=== PATIENT | female | born 1960 | race Caucasian/White ===

== ENCOUNTER 2020-03-14 14:31 | Outpatient (CLI) | payer OTHER, SELFPAY ==
--- NOTE | ~2020-03-14 | MM_ITS ---
EXAMINATION: MM screening torres BI w rhianna HISTORY: Screening TECHNIQUE: Craniocaudal and mediolateral oblique 3-D tomosynthesis images were obtained and synthetic 2-D images were generated. CAD analysis was submitted and interpreted. COMPARISON: Comparison to multiple prior studies sequentially, with oldest reviewed study dated 06/09. BREAST PARENCHYMAL COMPOSITION: There are scattered areas of fibroglandular density. FINDINGS: There is no evidence of suspicious mass, calcification, or architectural distortion to sugg est malignancy in either breast. There has been no suspicious interval change. IMPRESSION: 1. No mammographic evidence of malignancy. 2. Recommend routine screening mammography in one year. BI-RADS Category 1: Negative Reviewed, dictated and finalized at location A.
== END 2020-03-14 14:32 | disposition home or self-care (01) ==
LOC: ANHIMG 14:38
PROVIDERS: PCP Obstetrics & Gynecology; Visit Provider Obstetrics & Gynecology
DX: Z12.31 Encounter for screening mammogram for malignant neoplasm of breast (principal)
CPT/HCPCS: 77063; 77067

== ENCOUNTER 2022-05-17 14:04 | Outpatient (CLI) | payer OTHER, SELFPAY ==
--- NOTE | ~2022-05-17 | MM_ITS ---
EXAMINATION: MM screening torres BI w rhianna HISTORY: Screening TECHNIQUE: Craniocaudal and mediolateral oblique 3-D tomosynthesis images were obtained and synthetic 2-D images were generated. CAD analysis was submitted and interpreted. COMPARISON: 03/14/2020 BREAST PARENCHYMAL COMPOSITION: Breast composed of scattered areas of fibroglandular density FINDINGS: There is no evidence of suspicious mass, calcification, or architectural distortion to sugg est malignancy in either breast. There has been no suspicious interval change. IMPRESSION: 1. No mammographic evidence of malignancy. 2. Recommend routine screening mammography in one year. BI-RADS Category 1: Negative Reviewed, dictated and finalized at location A.
== END 2022-05-17 14:05 | disposition home or self-care (01) ==
LOC: ANHIMG 14:10
DX: Z12.31 Encounter for screening mammogram for malignant neoplasm of breast (principal)
CPT/HCPCS: 77063; 77067

== ENCOUNTER 2023-05-20 14:10 | Outpatient (CLI) | payer OTHER, SELFPAY ==
--- NOTE | ~2023-05-20 | MM_ITS ---
EXAMINATION: MM screening torres BI w rhianna HISTORY: Screening mammogram TECHNIQUE: Craniocaudal and mediolateral oblique 3-D tomosynthesis images were obtained and synthetic 2-D images were generated. CAD analysis was submitted and interpreted. COMPARISON: 05/17/2022, 03/14/2020 bilateral screening mammogram examinations BREAST PARENCHYMAL COMPOSITION: There are scattered areas of fibroglandular density. FINDINGS: There is no evidence of suspicious mass, calcification, or architectural distortion to sugg est malignancy in either breast. There has been no suspicious interval change. IMPRESSION: 1. No mammographic evidence of malignancy. 2. Recommend routine screening mammography in one year. BI-RADS Category 1: Negative Reviewed, dictated and finalized at location A.
== END 2023-05-20 14:11 | disposition home or self-care (01) ==
LOC: ANHIMG 14:13
DX: Z12.31 Encounter for screening mammogram for malignant neoplasm of breast (principal)
CPT/HCPCS: 77063; 77067

== ENCOUNTER 2023-09-05 13:58 | Outpatient (CLI) | payer OTHER, SELFPAY ==
--- NOTE | ~2023-09-05 | US_ITS ---
EXAMINATION: US art doppler w press LE DATE: 09/05/2023 15:34 INDICATION: Claudication. Peripheral arterial disease. TECHNIQUE: Segmental pressures and plethysmographic and Doppler waveforms of the brachial and lower e xtremity arteries were obtained. COMPARISON: None. FINDINGS: Right and left brachial artery pressures of 111 mm Hg and 105 mm Hg, respectively, are concordant (no rmal difference <= 30 mmHg). The right high-thigh pressure index is 1.25 (normal > 1.2). The right ankle-brachial index (JANUSZ) is 1 .23 (normal >= 0.9-1.0). The right great toe-brachial index (TBI) is 1.10 (normal >= 0.65). The right lower extremity segmental pressure gradients are normal (normal gradients <= 20-30 mmHg between erich cent levels on the same leg or the same levels on the two legs). Arterial Doppler waveforms are at le ast triphasic in common femoral artery, biphasic from superficial femoral artery to posterior tibial artery, triphasic in dorsalis pedis. The left high-thigh pressure index is 1.50. The left JANUSZ is 1.30. The left TBI is 0.92. The left lowe r extremity segmental pressure gradients are normal. Arterial Doppler waveforms triphasic in common f emoral artery and superficial femoral artery and biphasic in popliteal artery and at the ankle. IMPRESSION: 1. No significant arterial occlusive disease. Reviewed, dictated and finalized at location A. GER OPERATIONS
== END 2023-09-05 13:59 | disposition home or self-care (01) ==
LOC: ANHIMG 14:03
DX: I70.213 Atherosclerosis of native arteries of extremities with intermittent claudication, bilateral legs (principal)
CPT/HCPCS: 93923

== ENCOUNTER 2025-01-04 07:44 | Outpatient (CLI) | payer OTHER, MEDICARE, SELFPAY ==
--- NOTE | ~2025-01-04 | MM_ITS ---
EXAMINATION: MM screening torres BI w rhianna HISTORY: Screening TECHNIQUE: Craniocaudal and mediolateral oblique 3-D tomosynthesis images were obtained and synthetic 2-D images were generated. CAD analysis was submitted and interpreted. COMPARISON: Comparison to multiple prior studies sequentially, with oldest reviewed study dated 02/2020. BREAST PARENCHYMAL COMPOSITION: Not dense: There are scattered areas of fibroglandular density. FINDINGS: There is no evidence of suspicious mass, calcification, or architectural distortion to sugg est malignancy in either breast. There has been no suspicious interval change. IMPRESSION: 1. No mammographic evidence of malignancy. 2. Recommend routine screening mammography in one year. BI-RADS Category 1: Negative Reviewed, dictated and finalized at location A.
--- OUTSIDE RECORDS SUMMARY | 2025-01-04 07:48 | XMS_ITS | Clinical Summary ---
Author Organization [facility] Address [address] [place] [address] Care Team Providers Care Installation Helper Name Role Phone Unavailable Primary Care Provider Unavailabl e Source Comments [facility],non-owned Affiliates and Associated Physician Practices is amultiple site organization consisting of ambulatory clinics and [place]in [place] and [place]. This disclosure is being madepursuant to the Care Everywhere program and may not contain all information available regarding this patient. 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 Gender Identity Not on file Sexual Orientation Not on file Plan of Treatment Health Maintenance Due Date Last Done Comments BONE DENSITY TESTING 1959 COLOGUARD (AGES 45-75) - COL ON CA SCREENING 1959 COLON MONITORING 1959 COLONOSCOPY - COLON CA SCREENING 1959 CT COLONOGRAPHY - COLON CA SCREENING 1959 Colorectal Cancer Screening 1959 FIT - COLON CA SCREENING 1959 FLEX SIG - COLON CA SCREENING 1959 LIPID TESTING 1959 MAMMOGRAM 1959 HIV SCREENING 1974 HEPATITIS C SCREENING 05/10/1977 DTAP/TDAP/TD VACCINES (1 - Tdap) 1978 PNEUMOCOCCAL VACCINE 50+ (1 of 1 - PCV) 2009 ZOSTER VACCINE (1 of 2) 2009 COVID-19 VACCINE (1 - 2023-2 5 season) 2024 DEPRESSION SCREENING 08/08/2024 INFLUENZA VACCINE (Season Ended) 2025 Respiratory Syncytial Virus (RSV) Vaccine Pt: or over 60 yrs (1 - 1-dose 75+ series) 2034 HEPATITIS B VACCINE Aged Out No longe r eligible based on patient's age to complete this topic HIB VACCINE Aged Out No longer eligi ble based on patient's age to complete this topic HPV VACCINE Aged Out No longer eligi ble based on patient's age to complete this topic MENINGOCOCCAL (Group B) VACC INE SHARED DECISION-MAKING Aged Out No longer eligibl e based on patient's age to complete this topic MENINGOCOCCAL GROUPS A/C/Y/W VACCINE Aged Out No longer eligible b ased on patient's age to complete this topic Insurance
--- OUTSIDE RECORDS SUMMARY | 2025-01-04 07:48 | XMS_ITS | CONTINUITY OF CARE DOCUMENT ---
Author Name tarun mcneil Address Unknown Organization [facility] Address [address] [place] [address] Phone [phone] Care Team Providers Care Site Lead Name Role Phone Ramón SORIANO, Damian Unavailable ADELINA PRIVATE HOUSEHOLD WORKER, SAMINA Unavailable ADELINA PRIVATE HOUSEHOLD WORKER, SAMINA Unavailable PROBLEMS Condition Status Date Provider Notes Cardiology examination active Damian Melgar MD Diabetes, Type 2 active Damian Melgar MD Hyperlipidemia active Damian Melgar MD Hypertension active Damian Melgar MD Abnormal electrocardiogram active Damian kern MD Tobacco abuse active Damian Melgar MD Abnormal stress nuclear scan active Damian stuart MD ENCOUNTERS Date Type Provider Location Encounter Diag nosis - In-person encounter Office Visit Damian Melgar MD [facility] Abnormal stress nuclear scan - In-person encounter Office Visit Damian Melgar MD [facility] Cardiology examinationDiabetes, Type 2HyperlipidemiaHypertensionAbn ormal electrocardiogramTobacco abuse VITAL SIGNS Date Observation Value Provider Body Mass Index (Ratio) 33.29 kg/m2 Yaya Melgar MD blood pressure, diastolic 68 mm[Hg] St lino Govea blood pressure, systolic 107 mm[Hg] Sta aide Govea pulse rate 71 /min Rosa Elena Govea oxygen saturation, oximetry 96 % Rosa Elena Govea respiratory rate E&M 16 /min Rosa Elena navass weight E&M 212.6 [lb_av] Rosa Elena Govea height E&M 67 [in_i] Rosa Elena Govea Body Mass Index (Ratio) 32.57 kg/m2 Yaya Melgar MD blood pressure, diastolic 68 mm[Hg] Michelle nkLoggabbi blood pressure, systolic 103 mm[Hg] Roxi Chirinosoggabbi blood pressure, cuff size regular Seema kulwinder Velasquez blood pressure, diastolic 68 mm[Hg] Seema Velasquez blood pressure, systolic 103 mm[Hg] Bautista kirby Velasquez oxygen saturation, oximetry 96 % Parvin Velasquez respiratory rate E&M 18 /min Parvin Velasquez pulse rate 72 /min Parvin Velasquez weight E&M 208 [lb_av] Parvindamion Velasquez height E&M 67 [in_i] Parvin Velasquez ALLERGIES No Known Drug Allergies HISTORY OF MEDICATION USE Medication Status Instructions Dates Provider Indications Com ments furosemide 20 mg tablet active Take 1 tablet by mouth once a day Malini Garcia lisinopril-hydroc hlorothiazide 20-12.5 mg tablet active Take 1 tablet by mouth once a day Malini Garcia metformin 500 mg tablet active Take 1 tablet by mouth twice a day Malini Garcia rosuvastatin 20 mg tablet active Take 1 tablet by mouth once a day Malini Radha CoQ-10 100 mg capsule active Malini Radha Allergy 25 mg tablet active Malini Gradwoaer biotin unspecified unspecified active Malini Gradwoaer SOCIAL HISTORY Date Observation Value Provider social history E&M Marital Statu s: C hildren: 1 O ccupation: Office work Smoking History: P atient currently smokes every day. Damian Melgar MD social history reviewed E&M revi ewed - no changes required Damian Melgar MD smoking history, tot al pack/day 1 Rosa Elena Jeferson cigarette use yes Rosa Elena Jeferson smoking status Current every day smoker S bharathi Jeferson social history reviewed E&M revi ewed - no changes required Damian Melgar MD smoking history, tot al pack/day 1 Damian Melgar MD cigarette use yes Damian Melgar MD smoking status Current every day smoker R manish Melgar MD social history E&M Marital Statu s: Nithya luna: 1 O ccupation: Office work Smoking History: P atient currently smokes every day. Damian Melgar MD INSURANCE PROVIDERS Payer name Policy type / Coverage type [place] [employer] party ID BROOK[place]N [place] [id number] [facility] [id number] Other [id number] ADVANCE DIRECTIVES Name Date DISCUSSED - NO DECISION MADE DISCUSSED - NO DECISION MADE TREATMENT PLAN Date Name Performer [id number],N,S tress suggested inferior scar, but region suggested shows normal wall motion on nuclear study as well as ECHO indicating that this finding is an artifact or false positive. No further workup is indicated based on this test. Damian Melgar MD [id number],S, Damian tilley MD [id number],S, Damian tilley MD [id number],B, Damian tilley MD [id number],S, Damian tilley MD [id number],S, Damian tilley MD [id number],S, Damian tilley MD [id number],S, Damian tilley MD Cardiology:Stress santos ggested inferior scar, but region suggested shows normal wall motion on nuclear study as well as ECHO indicating that this finding is an artifact or false positive. No further workup is indicated based on this test. Damian Melgar MD Cardiology Damian Melgar MD Cardiology Damian Melgar MD Cardiology Damian Melgar MD Cardiology Damian Melgar MD Cardiology Damian Melgar MD Cardiology Damian Melgar MD Cardiology Damian Melgar MD Date Name Complete Echo Stress Exercise Card iolite EKG
--- OUTSIDE RECORDS SUMMARY | 2025-01-04 07:48 | XMS_ITS | Continuity of Care Document ---
Author Organization [facility] Address [address] [place] [address] Phone Care Team Providers Care Research Methods Instructor Name Role Phone Ellison OD, Raymond Unavailable Unavailable Advance Directives Directive Yes / No Effective Date File Name No Information Encounters Encounter Description Practice Location Reason(s) For Visit Diagnoses Date Provider Providers Copied on Encounter [facility], [address], [place], [place], [id number], [place] tel:[phone] [place] No Information 3-200 6 Ellison OD Raymond. [address] , [address], [place], [address], [place]. tel:[phone] Family History Family Member Type Diagnosis Age At Onset No Information Payers Payer name Insurance type Covered republican ID Authoriza tion(s) No Information Social History Type Description Quantity Date Captured Comments Sex Female Smoking Status No Information Chief Complaint And Reason For Visit No Information Reason For Referral Reason For Referral No Information History Of Present Illness Encounter Date Complaint History Of Prese nt Illness No Information Functional Status Date Functional Assessmen t No Information Instructions Date Instruction Additional Infor mation No Information Assessments Type Assessment Date No Information Patient Care Teams Name Effective Dates (start - stop) Status Members No Information
== END 2025-01-04 07:45 | disposition home or self-care (01) ==
LOC: ANHIMG 07:47
DX: Z12.31 Encounter for screening mammogram for malignant neoplasm of breast (principal)
CPT/HCPCS: 77063; 77067